=== PATIENT | female | born 1975 | race Caucasian/White ===

== ENCOUNTER → 2018-06-04 | Outpatient (CLI) | payer MEDICAID ==
--- NOTE | 2018-06-04 11:50 | RADIOLOGY REPORT (SQ) ---
EXAM DESCRIPTION: MRI LUMBAR SPINE WITHOUT COMPLETED DATE/TIME: 06/04/2018 10:47 am REASON FOR STUDY: LOW BACK PAIN (M54.5) M54.5 LOW BACK PAIN COMPARISON: None. TECHNIQUE: Sagittal and Axial imaging includes T1, T2, STIR and gradient echo sequences. Coronal T2/ HASTE imaging. LIMITATIONS: Motion. FINDINGS: VISUALIZED UPPER ABDOMEN: Limited evaluation. No acute or suspicious findings suggested. SEGMENTATION: No transitional anatomy. The lowest well-developed disc space is labeled L5-S1. ALIGNMENT: Anatomic. VERTEBRAE: Intact. BONE MARROW: Normal. No marrow replacement or reactive changes. DISC SIGNAL: Desiccation L5-S1. POSTERIOR ELEMENTS: Generally intact. No pars defect evident. HARDWARE: None in the spine. CORD AND CONUS: Normal in size and signal intensity. Conus at the appropriate level. SOFT TISSUES: No aortic aneurysm seen. No bulky retroperitoneal adenopathy or mass. No paraspinal mas s or fluid. L1-L2: No significant spinal stenosis or exit foraminal stenosis. L2-L3: No significant spinal stenosis or exit foraminal stenosis. L3-L4: No significant spinal stenosis or exit foraminal stenosis. L4-L5: Facet arthropathy. No significant stenosis. L5-S1: Central disc herniation contacting the transiting nerve roots in the canal. Facet arthropathy . Mild neural foraminal narrowing bilaterally. LOWER THORACIC: Incompletely imaged. No stenosis seen. SACRUM: Visualized upper sacrum intact. OTHER: No other significant findings. IMPRESSION: Facet arthropathy. Central disc herniation L5-S1. TECHNICAL DOCUMENTATION: JOB ID: [id number] [employer]- All Rights Reserved Reading location - IP/workstation name: [email or web address]
--- NOTE | 2018-06-04 12:16 | RADIOLOGY REPORT (SQ) ---
EXAM DESCRIPTION: KNEE LEFT 3 VIEWS COMPLETED DATE/TIME: 06/04/2018 10:33 am REASON FOR STUDY: BILATERAL KNEE PAIN (M25.561,M25.562) M54.5 LOW BACK PAIN COMPARISON: None. NUMBER OF VIEWS: Three views. TECHNIQUE: AP, lateral, and tunnel radiographic images acquired of the left knee. LIMITATIONS: None. FINDINGS: MINERALIZATION: Normal. BONES: No acute fracture or dislocation. No worrisome bone lesions. JOINT: No effusion. SOFT TISSUES: No soft tissue swelling. No radio-opaque foreign body. OTHER: No other significant finding. IMPRESSION: NEGATIVE STUDY OF THE LEFT KNEE. NO RADIOGRAPHIC EVIDENCE OF ACUTE INJURY. TECHNICAL DOCUMENTATION: JOB ID: [id number] [employer]- All Rights Reserved Reading location - IP/workstation name: [email or web address]
--- NOTE | 2018-06-04 12:18 | RADIOLOGY REPORT (SQ) ---
EXAM DESCRIPTION: KNEE RIGHT 3 VIEWS COMPLETED DATE/TIME: 06/04/2018 10:33 am REASON FOR STUDY: BILATERAL KNEE PAIN (M25.561,M25.562) M54.5 LOW BACK PAIN COMPARISON: None. NUMBER OF VIEWS: Three views. TECHNIQUE: AP, lateral, and tunnel radiographic images acquired of the right knee. LIMITATIONS: None. FINDINGS: MINERALIZATION: Normal. BONES: No acute fracture or dislocation. No worrisome bone lesions. Benign bony spurring along the patellar tendon attachment to the inferior patellar margin JOINT: Tiny suprapatellar knee joint effusion. SOFT TISSUES: No soft tissue swelling. No radio-opaque foreign body. OTHER: No other significant finding. IMPRESSION: Tiny suprapatellar knee joint effusion. Otherwise unremarkable study. TECHNICAL DOCUMENTATION: JOB ID: [id number] [employer] All Rights Reserved Reading location - IP/workstation name: [email or web address]
== END ==
LOC: RAD 09:19
PROVIDERS: ATTEND Pain Medicine Interventional Pain Medicine
DX: M51.27 Other intervertebral disc displacement, lumbosacral region (principal); M25.561 Pain in right knee; M25.562 Pain in left knee; M25.461 Effusion, right knee
CPT/HCPCS: 72148

== ENCOUNTER 2018-06-05 09:59 | Emergency (ER) | payer MEDICAID ==
[2018-06-05] MEDS ORDERED: METOCLOPRAMIDE HCL ORAL SOLN 10 MG/10 ML UDCUP PO ONE (10:38)
[2018-06-05] MEDS ORDERED: MAG HYDROX/AL HYDROX/SIMETH SUSP 30 ML UDCUP PO ONE (10:38)
[2018-06-05] MEDS ORDERED: LIDOCAINE 2% VISCOUS SOLN 20 ML UDCUP PO ONE (10:38)
[2018-06-05] MEDS ORDERED: FAMOTIDINE 20 MG TABLET PO ONE (10:38)
--- NOTE | 2018-06-05 10:40 | ER Document Report ---
ED Medical Screen (RME) - General Chief Complaint: Abdominal Pain Stated Complaint: ABDOMINAL PAIN Time Seen by Provider: 06/05/18 10:31 Primary Care Provider: GELA COOK MD [Primary Care Provider] - Follow up as needed Mode of Arrival: Ambulatory Information source: Patient Notes: 43-year-old female presents emergency department complaints of epigastric abdomi nal pain that started at 3 AM. She is having associated nausea and vomiting. She describes the pain as a sharp and stabbing sensation located in the epigastric area with radiation to the left upper quadrant. She denies any alleviating or exacerbating factors. She states that she has tried [place] without any relief of symptoms. She denies any diarrhea, constipation, dysuria, hematuria, vaginal bleeding, vaginal discharge, fever, chills, chest pain, shortness of breath. Patient denies a history of hypertension, diabetes, coronary artery disease. Patient states that she does have a history of hyperlipidemia, lupus and smokes. I have greeted and performed a rapid initial assessment of this patient. A comprehensive ED assessment and evaluation of the patient, analysis of test res ults and completion of the medical decision making process will be conducted by additional ED providers. PHYSICAL EXAMINATION: GENERAL: Well-appearing, well-nourished and in no acute distress. HEAD: Atraumatic, normocephalic. EYES: Pupils equal round extraocular movements intact, conjunctiva are normal. ENT: Nares patent NECK: Normal range of motion LUNGS: No respiratory distress Musculoskeletal: Normal range of motion NEUROLOGICAL: Normal speech, normal gait. PSYCH: Normal mood, normal affect. SKIN: Warm, Dry, normal turgor, no rashes or lesions noted. TRAVEL OUTSIDE OF THE [place] IN LAST 30 DAYS: No - Related Data Allergies/Adverse Reactions: erythromycin base Allergy (Verified 06/05/18 10:35) Past Medical History - Social History Chew tobacco use (# tins/day): No Frequency of alcohol use: Occasional Drug Abuse: None - Past Medical History Cardiac Medical History: Reports: Hx Hypercholesterolemia Pulmonary Medical History: Reports: Hx COPD Renal/ Medical History: Denies: Hx Peritoneal Dialysis GI Medical History: Reports: Hx Gastroesophageal Reflux Disease Musculoskeltal Medical History: Reports Hx Arthritis Psychiatric Medical History: Reports: Hx Depression - anxiety Past Surgical History: Reports: Hx Abdominal Surgery - laproscopic surgery, Hx Tonsillectomy Physical Exam - Vital signs Vitals: Temp Pulse Resp BP Pulse Ox 98.8 F 89 20 126/77 H 100 06/05/18 10:08 06/05/18 10:08 06/05/18 10:08 06/05/18 10:08 06/05/18 10:08 Course - Vital Signs Vital signs: Temp Pulse Resp BP Pulse Ox 98.8 F 89 20 126/77 H 100 06/05/18 10:08 06/05/18 10:08 06/05/18 10:08 06/05/18 10:08 06/05/18 10:08 Doctor's Discharge - Discharge Referrals: GELA COOK MD [Primary Care Provider] - Follow up as needed
--- NOTE | 2018-06-05 11:22 | RADIOLOGY REPORT (SQ) ---
EXAM DESCRIPTION: CHEST SINGLE VIEW COMPLETED DATE/TIME: 06/05/2018 10:59 am REASON FOR STUDY: epigastric abdominal pain COMPARISON: None. NUMBER OF VIEWS: One view. TECHNIQUE: Single frontal radiographic view of the chest acquired. LIMITATIONS: None. FINDINGS: LUNGS AND PLEURA: No opacities, masses or pneumothorax. No pleural effusion. MEDIASTINUM AND HILAR STRUCTURES: No masses. Contour normal. HEART AND VASCULAR STRUCTURES: Heart normal in size. Normal vasculature. BONES: No acute findings. HARDWARE: None in the chest. OTHER: No other significant finding. IMPRESSION: NO SIGNIFICANT RADIOGRAPHIC FINDING IN THE CHEST. TECHNICAL DOCUMENTATION: JOB ID: [id number] [employer]- All Rights Reserved Reading location - IP/workstation name: [email or web address]
[2018-06-05 11:51] LABS: ALANINE AMINOTRANSFERASE 38 U/L (9-52); ALBUMIN 4.7 g/dL (3.5-5.0); ALKALINE PHOSPHATASE 85 U/L (38-126); ANION GAP 11 (5-19); ASPARTATE AMINO TRANSFERASE 27 U/L (14-36); BILIRUBIN,DIRECT 0.2 mg/dL (0.0-0.4); BILIRUBIN,TOTAL 0.3 mg/dL (0.2-1.3); BLOOD UREA NITROGEN 9 mg/dL (7-20); CALCIUM 9.7 mg/dL (8.4-10.2); CARBON DIOXIDE 27 mmol/L (22-30); CHLORIDE 106 mmol/L (98-107); GLUCOSE 74 mg/dL (75-110); POTASSIUM 3.8 mmol/L (3.6-5.0); SODIUM 144.3 mmol/L (137-145); TOTAL PROTEIN 7.8 g/dL (6.3-8.2)
[2018-06-05 11:56] LABS: APPEARANCE,URINE CLEAR; BILIRUBIN,URINE NEGATIVE (NEGATIVE); COLOR,URINE STRAW; GLUCOSE, URINE NEGATIVE (NEGATIVE); KETONES,URINE NEGATIVE (NEGATIVE); LEUKOCYTE ESTERASE,URINE NEGATIVE (NEGATIVE); NITRITE,URINE NEGATIVE (NEGATIVE); PROTEIN,URINE NEGATIVE (NEGATIVE); URINE SPECIFIC GRAVITY 1.003; UROBILINOGEN,URINE NEGATIVE mg/dL (<2.0)
[2018-06-05 12:04] LABS: ABSOLUTE BASOPHILS # (AUTO) 0.1 10^3/uL (0.0-0.2); ABSOLUTE EOSINOPHILS # (AUTO) 0.1 10^3/uL (0.0-0.6); ABSOLUTE LYMPHOCYTES (AUTO) 3.2 10^3/uL (0.5-4.7); ABSOLUTE MONOCYTES (AUTO) 0.6 10^3/uL (0.1-1.4); ABSOLUTE NEUT (AUTO) 8.8 10^3/uL (1.7-8.2); BASOPHILS % (AUTO) 0.5 % (0-2); EOSINOPHILS % (AUTO) 1.1 % (0-6); HEMATOCRIT 42.3 % (36.0-47.0); HEMOGLOBIN 14.4 g/dL (12.0-15.5); MEAN CORPUSCULAR HEMOGLOBIN 30.5 pg (27.0-33.4); MEAN CORPUSCULAR VOLUME 90 fl (80-97); MONOCYTES % (AUTO) 4.8 % (3-13); PLATELET COUNT 330 10^3/uL (150-450); RED CELL DISTRIBUTION WIDTH 15.3 % (11.5-14.0); SEGMENTED NEUTROPHILS % (AUTO) 68.6 % (42-78); TOTAL CELLS COUNTED % (AUTO) 100 %; WHITE BLOOD COUNT 12.8 10^3/uL (4.0-10.5)
--- NOTE | 2018-06-05 13:16 | ER Document Report ---
ED General - General Chief Complaint: Abdominal Pain Stated Complaint: ABDOMINAL PAIN Time Seen by Provider: 06/05/18 10:31 Primary Care Provider: GELA COOK MD [ACTIVE STAFF] - Follow up as needed Mode of Arrival: Ambulatory Notes: RME note: 43-year-old female presents emergency department complaints of epigastric abdominal pain that started at 3 AM. She is having associated nausea and vomiting. She describes the pain as a sharp and stabbing sensation located in the epigastric area with radiation to the left upper quadrant. She denies any alleviating or exacerbating factors. She states that she has tried Apple-[place] without any relief of symptoms. She denies any diarrhea, constipation, dysuria, hematuria, vaginal bleeding, vaginal discharge, fever, chills, chest pain, chela rtness of breath. Patient denies a history of hypertension, diabetes, coronary artery disease. Patient states that she does have a history of hyperlipidemia, lupus and smokes. MY HPI: Same as above. Patient denies any blood in her vomiting. After treatments in the emergency department by [facility] provider patient no longer has any epigastric abdominal pain and is sleeping upon me arriving to the room. Past medical history: GERD, lupus, degenerative disc disease Medications: Wellbutrin, Valium, hydroxychloroquine Allergies: Erythromycin Last menstrual period 05/18/2018 TRAVEL OUTSIDE OF THE [place] IN LAST 30 DAYS: No - Related Data Allergies/Adverse Reactions: erythromycin base Allergy (Verified 06/05/18 10:35) Past Medical History - General Information source: Patient - Social History Smoking Status: Current Every Day Smoker Chew tobacco use (# tins/day): No Frequency of alcohol use: Occasional Drug Abuse: None Family History: Reviewed & Not Pertinent Patient has suicidal ideation: No Patient has homicidal ideation: No - Past Medical History Cardiac Medical History: Reports: Hx Hypercholesterolemia Pulmonary Medical History: Reports: Hx COPD Renal/ Medical History: Denies: Hx Peritoneal Dialysis GI Medical History: Reports: Hx Gastroesophageal Reflux Disease Musculoskeletal Medical History: Reports Hx Arthritis Psychiatric Medical History: Reports: Hx Depression - anxiety Past Surgical History: Reports: Hx Abdominal Surgery - laproscopic surgery, Hx Tonsillectomy Review of Systems - Review of Systems Constitutional: No symptoms reported EENT: No symptoms reported Cardiovascular: No symptoms reported Respiratory: No symptoms reported Gastrointestinal: See HPI Genitourinary: See HPI Female Genitourinary: See HPI Musculoskeletal: No symptoms reported Skin: No symptoms reported Hematologic/Lymphatic: No symptoms reported Neurological/Psychological: No symptoms reported Physical Exam - Vital signs Vitals: Temp Pulse Resp BP Pulse Ox 98.8 F 89 20 126/77 H 100 06/05/18 10:08 06/05/18 10:08 06/05/18 10:08 06/05/18 10:08 06/05/18 10:08 - Notes Notes: GENERAL: Alert, interacts well. No acute distress. HEAD: Normocephalic, atraumatic. EYES: Pupils equal, round, and reactive to light. Extraocular movements intact. ENT: Oral mucosa moist, tongue midline. NECK: Full range of motion. Supple. Trachea midline. LUNGS: Clear to auscultation bilaterally, no wheezes, rales, or rhonchi. No respiratory distress. HEART: Regular rate and rhythm. No murmur ABDOMEN: Soft, non-tender. Non-distended. Bowel sounds present in all 4 quadrants. No McBurney's point tenderness noted, no Nair sign. Very minor epigastric abdominal pain upon deep palpation. EXTREMITIES: Moves all 4 extremities spontaneously. No edema, normal radial and dorsalis pedis pulses bilaterally. No cyanosis. BACK: no cervical, thoracic, lumbar midline tenderness. No saddle anesthesia, normal distal neurovascular exam. NEUROLOGICAL: Alert and oriented x3. Normal speech. cranial nerves II through XII grossly intact. PSYCH: Normal affect, normal mood. SKIN: Warm, dry, normal turgor. No rashes or lesions noted. Course - Re-evaluation Re-evalutation: 06/05/18 13:15 Initially upon my evaluation patient is sleeping easily arousable. Patient states she no longer has any abdominal pain and is no longer nauseous. She has been able to drink fluids since arrival to the emergency room. Upon palpation of patient's abdomen she does have minor epigastric abdominal pain. Patient states it feels a lot better than when she arrived. Discussed following up with primary care provider and inevitably gastroenterology. 06/05/18 13:16 Patient's labs show a leukocytosis of 12.8 likely due to her vomiting. No signs of anemia, electrolyte abnormalities, elevation in patient's liver function or lipase. No signs of urinary tract infection. Chest x-ray shows no signs of p neumonia, and are not worrisome for free air. Discussed close follow-up with patient, patient stable for discharge. - Vital Signs Vital signs: Temp Pulse Resp BP Pulse Ox 98.8 F 89 20 126/77 H 100 06/05/18 10:08 06/05/18 10:08 06/05/18 10:08 06/05/18 10:08 06/05/18 10:08 - Laboratory Result Diagrams: 06/05/18 11:05 06/05/18 11:05 Laboratory results interpreted by me: 06/05/18 06/05/18 11:05 11:05 WBC 12.8 H RDW 15.3 H Absolute Neutrophils 8.8 H Glucose 74 L Discharge - Discharge Clinical Impression: Epigastric abdominal pain Vomiting Qualifiers: Vomiting type: unspecified Vomiting Intractability: non-intractable Nausea presence: with nausea Qualified Code(s): R11.2 - Nausea with vomiting, unspecified Condition: Stable Disposition: HOME, SELF-CARE Instructions: Abdominal Pain ([facility]), Vomiting ([facility]) Additional Instructions: As we discussed you have been seen and treated in the emergency department for your epigastric abdominal pain and vomiting. Please take medications as prescribed. Please follow-up with your primary care provider in the next 24-48 hours. Please also return to the emergency room should you have any other concerning symptoms. Prescriptions: Famotidine [Pepcid 40 mg Tablet] 40 mg PO BID #60 tablet Ondansetron [Zofran Odt 4 mg Tablet] 1 - 2 tab PO Q4H PRN #15 tab.rapdis PRN Reason: For Nausea/Vomiting Sucralfate [Carafate 1 gm Tablet] 1 gm PO QID #20 tablet Referrals: GELA COOK MD [ACTIVE STAFF] - Follow up as needed
[2018-06-05 13:36] VITALS: BP 123/69
--- NOTE | 2018-06-05 20:08 | EKG REPORT ---
SEVERITY:- NORMAL ECG - SINUS RHYTHM : Confirmed by: Tony Paredes 05-Jun-2018 20:07:14
== END 2018-06-05 13:36 | disposition home or self-care (01) ==
LOC: ER 09:59
DX: R10.13 Epigastric pain (principal); R11.2 Nausea with vomiting, unspecified; F17.200 Nicotine dependence, unspecified, uncomplicated; K21.9 Gastro-esophageal reflux disease without esophagitis; E78.00 Pure hypercholesterolemia, unspecified; Z88.3 Allergy status to other anti-infective agents
CPT/HCPCS: 93005; 99284; 36415; 83690; 85025; 81025; 80053; 81001; 71045; 93010; J3490 ×4

== ENCOUNTER 2018-06-30 16:46 | Emergency (ER) | payer MEDICAID ==
[2018-06-30] MEDS ORDERED: FENTANYL CITRATE INJ/PF 100 MCG/2 ML AMPUL IM ONE (18:27)
[2018-06-30] MEDS ORDERED: KETOROLAC TROMETHAMINE 60 MG/2 ML SDV IM ONE (18:27)
--- NOTE | 2018-06-30 18:28 | ER Document Report ---
ED Hand/Wrist Injury - General Chief Complaint: Wrist Pain Stated Complaint: WRIST PAIN Time Seen by Provider: 06/30/18 18:16 Notes: 43-year-old female patient emergency department chief complaint of right wrist pain. 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 Everything has been fine but after procedure several hours later began developed severe pain in the right wrist. Pain with range of motion. Patient placed a George wrap on the right wrist and that did seem to help. Continues to have pain. Pain is not getting worse but getting slightly better. Did take some Naprosyn before she came. Sensation is intact in the fingers. Able to move all digits. TRAVEL OUTSIDE OF THE [place] IN LAST 30 DAYS: No - HPI Injury to: Wrist Onset: Just prior to arrival Where: Home Timing: Constant Quality of pain: Achy, Throbbing - Related Data Allergies/Adverse Reactions: erythromycin base Allergy (Verified 06/30/18 16:47) Past Medical History - General Information source: Patient - Social History Smoking Status: Current Every Day Smoker Frequency of alcohol use: None Drug Abuse: None Lives with: Family Family History: Reviewed & Not Pertinent Patient has suicidal ideation: No Patient has homicidal ideation: No - Past Medical History Cardiac Medical History: Reports: Hx Hypercholesterolemia Pulmonary Medical History: Reports: Hx COPD Renal/ Medical History: Denies: Hx Peritoneal Dialysis GI Medical History: Reports: Hx Gastroesophageal Reflux Disease Musculoskeletal Medical History: Reports Hx Arthritis Psychiatric Medical History: Reports: Hx Depression - anxiety Past Surgical History: Reports: Hx Abdominal Surgery - laproscopic surgery, Hx Tonsillectomy Review of Systems - Review of Systems Constitutional: denies: Fever, Malaise, Weakness EENT: denies: Blurred vision, Difficulty swallowing, Mouth swelling Cardiovascular: denies: Chest pain, Palpitations, Heart racing Respiratory: denies: Cough, Hurts to breathe, Short of breath, Wheezing Musculoskeletal: See HPI, Other - Complaining of pain in the right wrist. Pain with range of motion flexion and extension. Physical Exam - Vital signs Vitals: Temp Pulse Resp BP Pulse Ox 98.7 F 126 H 20 139/83 H 99 06/30/18 16:51 06/30/18 16:51 06/30/18 16:51 06/30/18 16:51 06/30/18 16:51 Interpretation: Normal - General General appearance: Appears well In distress: None - Respiratory Respiratory status: No respiratory distress Chest status: Nontender Breath sounds: Normal Chest palpation: Normal - Cardiovascular Rhythm: Regular Heart sounds: Normal auscultation Murmur: No - Extremities General upper extremity: Other - Both radial and ulnar artery pulses are intact. Full sensation intact with hyper sensation. Pain worse with range of motion of the right wrist and fingers. There does not appear to be any tense compartments. There is a small injection site noted in the right dorsal wrist area. There is no signs of streaking cellulitis or lymphangitic streaking. It is non-warm and nonerythematous - Skin Skin Temperature: Warm Skin Moisture: Dry Skin Color: Normal Course - Re-evaluation Re-evalutation: 06/30/18 19:33 At this time I think more likely patient is having just a little bit of injection site pain. I have explained to her that I am not concerned about an acute infection. I do not think this represents a acute compartment syndrome as her compartments are soft. Could be some local inflammation. I am going to give her some a medication here in the ER. Currently the pain is decreasing not increasing. More likely patient will be stable for discharge. Has narcotic medication as her regular pain meds at home. 06/30/18 20:03 Patient feeling much better at this time. Pain is much better. Will DC at this time with some Toradol. - Vital Signs Vital signs: Temp Pulse Resp BP Pulse Ox 98.8 F 108 H 20 133/80 H 99 06/30/18 19:58 06/30/18 19:58 06/30/18 16:51 06/30/18 19:58 06/30/18 19:58 Discharge - Discharge Clinical Impression: Arthritis of right wrist Pain at injection site Qualifiers: Encounter type: initial encounter Qualified Code(s): T80.89XA - Other complications following infusion, transfusion and therapeutic injection, initial encounter; R52 - Pain, unspecified Condition: Good Disposition: HOME, SELF-CARE Instructions: Pain Medication Injection ([facility]), Arthralgia ([facility]), Arthritis ([facility] ) Additional Instructions: If you develop any redness or swelling which is getting worse, fever, any other concerns please return or follow-up with your regular doctor. Take medications as prescribed. Prescriptions: Ketorolac Tromethamine [Toradol 10 mg Tablet] 10 mg PO Q8HP PRN 4 Days #12 tablet PRN Reason: Forms: Return to Work
[2018-06-30 20:01] VITALS: BP 133/80
== END 2018-06-30 20:18 | disposition home or self-care (01) ==
LOC: ER 16:46
DX: T80.89XA Other complications following infusion, transfusion and therapeutic injection, initial encounter (principal); M25.531 Pain in right wrist; Y84.8 Other medical procedures as the cause of abnormal reaction of the patient, or of later complication, without mention of misadventure at the time of the procedure; Y92.009 Unspecified place in unspecified non-institutional (private) residence as the place of occurrence of the external cause; M19.031 Primary osteoarthritis, right wrist; Z88.1 Allergy status to other antibiotic agents; F17.200 Nicotine dependence, unspecified, uncomplicated; J44.9 Chronic obstructive pulmonary disease, unspecified
CPT/HCPCS: 99283; 96372; J1885; J3010

== ENCOUNTER 2018-12-11 03:11 | Emergency (ER) | payer MEDICAID ==
[2018-12-11 04:23] LABS: ABSOLUTE LYMPHOCYTES (AUTO) 1.7 10^3/uL (0.5-4.7); ABSOLUTE MONOCYTES (AUTO) 0.3 10^3/uL (0.1-1.4); ABSOLUTE NEUT (AUTO) 11.3 10^3/uL (1.7-8.2); BASOPHILS % (AUTO) 0.3 % (0-2); HEMATOCRIT 41.8 % (36.0-47.0); HEMOGLOBIN 13.5 g/dL (12.0-15.5); LYMPHOCYTES % (AUTO) 12.4 % (13-45); MEAN CORPUSCULAR HEMOGLOBIN 29.7 pg (27.0-33.4); MEAN CORPUSCULAR HGB CONC 32.3 g/dL (32.0-36.0); MEAN CORPUSCULAR VOLUME 92 fl (80-97); MONOCYTES % (AUTO) 2.6 % (3-13); PLATELET COUNT 330 10^3/uL (150-450); RED BLOOD COUNT 4.55 10^6/uL (3.72-5.28); SEGMENTED NEUTROPHILS % (AUTO) 84.7 % (42-78); TOTAL CELLS COUNTED % (AUTO) 100 %; WHITE BLOOD COUNT 13.3 10^3/uL (4.0-10.5)
[2018-12-11 04:29] LABS: APPEARANCE,URINE SLIGHTLY-CLOUDY; BILIRUBIN,URINE NEGATIVE (NEGATIVE); COLOR,URINE YELLOW; GLUCOSE, URINE NEGATIVE (NEGATIVE); KETONES,URINE NEGATIVE (NEGATIVE); LEUKOCYTE ESTERASE,URINE NEGATIVE (NEGATIVE); NITRITE,URINE NEGATIVE (NEGATIVE); PROTEIN,URINE 30 mg/dL (NEGATIVE); URINE SPECIFIC GRAVITY 1.025
[2018-12-11 04:43] LABS: ALBUMIN 4.1 g/dL (3.5-5.0); ALKALINE PHOSPHATASE 77 U/L (38-126); ANION GAP 11 (5-19); ASPARTATE AMINO TRANSFERASE 29 U/L (14-36); BILIRUBIN,DIRECT 0.5 mg/dL (0.0-0.4); BILIRUBIN,TOTAL 0.5 mg/dL (0.2-1.3); BLOOD UREA NITROGEN 14 mg/dL (7-20); CALCIUM 9.6 mg/dL (8.4-10.2); CARBON DIOXIDE 22 mmol/L (22-30); CHLORIDE 106 mmol/L (98-107); GLUCOSE 145 mg/dL (75-110); POTASSIUM 4.5 mmol/L (3.6-5.0); TOTAL PROTEIN 7.3 g/dL (6.3-8.2)
[2018-12-11] MEDS ORDERED: DICYCLOMINE HCL 20 MG TABLET PO ONE (05:20)
[2018-12-11] MEDS ORDERED: OXYCODONE-ACETAMINOPHEN 5-325 MG TABLET PO ONE (05:20)
[2018-12-11] MEDS ORDERED: ONDANSETRON 4 MG TAB.RAPDIS PO ONE (05:20)
--- NOTE | 2018-12-11 05:22 | ER Document Report ---
ED Medical Screen (RME) - General Chief Complaint: Epigastric Pain Stated Complaint: FLANK PAIN Time Seen by Provider: 12/11/18 05:17 Primary Care Provider: VALENTE BARON FNP-C [Primary Care Provider] - Follow up as needed Mode of Arrival: Ambulatory Information source: Patient Notes: This 43-year-old female presents to the emergency department with epigastric dong n that wraps around to the right side of her back. Reports nausea and vomiting. Reports pain woke her up from midnight. Epigastric area tender to palpate. I have greeted and performed a rapid initial assessment of this patient. A comprehensive ED assessment and evaluation of the patient, analysis of test results and completion of the medical decision making process will be conducted by additional ED providers. Dictation of this chart was performed using voice recognition software; therefore, there may be some unintended grammatical errors. TRAVEL OUTSIDE OF THE [place] IN LAST 30 DAYS: No - Related Data Allergies/Adverse Reactions: erythromycin base Allergy (Verified 12/11/18 03:25) Past Medical History - Past Medical History Cardiac Medical History: Reports: Hx Hypercholesterolemia Pulmonary Medical History: Reports: Hx COPD Renal/ Medical History: Denies: Hx Peritoneal Dialysis GI Medical History: Reports: Hx Gastroesophageal Reflux Disease Musculoskeltal Medical History: Reports Hx Arthritis Psychiatric Medical History: Reports: Hx Depression - anxiety Past Surgical History: Reports: Hx Abdominal Surgery - laproscopic surgery, Hx Tonsillectomy Physical Exam - Vital signs Vitals: Temp Pulse Resp BP Pulse Ox 97.5 F 77 18 125/83 99 12/11/18 03:29 12/11/18 03:29 12/11/18 03:29 12/11/18 03:29 12/11/18 03:29 Course - Vital Signs Vital signs: Temp Pulse Resp BP Pulse Ox 97.5 F 77 18 125/83 99 12/11/18 03:29 12/11/18 03:29 12/11/18 03:29 12/11/18 03:29 12/11/18 03:29 - Laboratory Result Diagrams: 12/11/18 03:40 12/11/18 03:40 Laboratory results interpreted by me: 12/11/18 12/11/18 12/11/18 03:40 03:40 03:40 WBC 13.3 H RDW 15.0 H Seg Neutrophils % 84.7 H Lymphocytes % 12.4 L Monocytes % 2.6 L Absolute Neutrophils 11.3 H Glucose 145 H Direct Bilirubin 0.5 H Urine Protein 30 H Urine Urobilinogen 2.0 H Urine Ascorbic Acid 40 H Doctor's Discharge - Discharge Referrals: VALENTE BARON, [facility] [Primary Care Provider] - Follow up as needed
[2018-12-11] MEDS ORDERED: METOCLOPRAMIDE HCL INJ/PF 10 MG/2 ML SDV IV ONE (06:00)
--- NOTE | 2018-12-11 07:32 | RADIOLOGY REPORT (SQ) ---
EXAM DESCRIPTION: US ABDOMEN LIMITED COMPLETED DATE/TME: 12/11/2018 05:20 CLINICAL HISTORY: 43 years Female, epigastric pain, RUQ Comparison: None. LIMITATIONS: None. FINDINGS: Cholelithiasis, negative sonographic Nair's test, liver, a 0.4-cm diameter common bile duct, no intrahepatic ductal dilation, hepatopetal patent flow of the portal vein, 11-cm right kidney, pancreas, visualized vasculature/abdominal aorta, and no significant ascites appear otherwise unremarkable. IMPRESSION: No acute findings. Cholelithiasis.
[2018-12-11 09:57] VITALS: BP 103/50
--- NOTE | 2018-12-12 10:27 | ER Document Report ---
Entered by AIDA CRYSTAL SCRIBE 12/11/18 0930 Acting as scribe for:MOMO CRUZ MD ED General - General Chief Complaint: Epigastric Pain Stated Complaint: FLANK PAIN Time Seen by Provider: 12/11/18 05:17 Primary Care Provider: VALENTE BARON FNP-C [Primary Care Provider] - Follow up as needed Mode of Arrival: Ambulatory Notes: Patient is a 43-year-old female with history of cholelithiasis presenting to the emergency department complaining of flank pain. Patient states that she is also experiencing abdominal pain, and that it is specifically in the epigastric area. Patient reports she is also experiencing right sided back pain. Patient states that the only medication she is taking is prednisone, she was prescribed that yesterday from Dr. Patiño. TRAVEL OUTSIDE OF THE [place] IN LAST 30 DAYS: No - Related Data Allergies/Adverse Reactions: erythromycin base Allergy (Verified 12/11/18 03:25) Past Medical History - General Information source: Patient - Social History Smoking Status: Current Every Day Smoker Cigarette use (# per day): Yes Chew tobacco use (# tins/day): No Smoking Education Provided: No Frequency of alcohol use: None Drug Abuse: None Family History: Reviewed & Not Pertinent Patient has suicidal ideation: No Patient has homicidal ideation: No - Past Medical History Cardiac Medical History: Reports: Hx Hypercholesterolemia Pulmonary Medical History: Reports: Hx COPD GI Medical History: Reports: Hx Gastroesophageal Reflux Disease Musculoskeletal Medical History: Reports Hx Arthritis Psychiatric Medical History: Reports: Hx Depression - anxiety Past Surgical History: Reports: Hx Abdominal Surgery - laproscopic surgery, Hx Tonsillectomy Review of Systems - Review of Systems Constitutional: No symptoms reported EENT: No symptoms reported Cardiovascular: No symptoms reported Respiratory: No symptoms reported Gastrointestinal: See HPI, Abdominal pain Genitourinary: See HPI, Flank pain Female Genitourinary: No symptoms reported Musculoskeletal: See HPI, Back pain - right Skin: No symptoms reported Hematologic/Lymphatic: No symptoms reported Neurological/Psychological: No symptoms reported -: Yes All other systems reviewed and negative Physical Exam - Vital signs Vitals: Temp Pulse Resp BP Pulse Ox 97.5 F 77 18 125/83 99 12/11/18 03:29 12/11/18 03:29 12/11/18 03:29 12/11/18 03:29 12/11/18 03:29 - Notes Notes: Physical Exam: General: Alert, appears well. HEENT: Normocephalic. Atraumatic. PERRL. Extraocular movements intact. Oropharynx clear. Neck: Supple. Non-tender. Respiratory: No respiratory distress. Clear and equal breath sounds bilaterally. Cardiovascular: Regular rate and rhythm. Abdominal: Normal Inspection. Non-tender. No distension. Normal Bowel Sounds. Back: Non-tender. No deformity or step off. Extremities: Moves all four extremities. Upper extremities: Normal inspection. Normal ROM. Lower extremities: Normal inspection. No edema. Normal ROM. Neurological: Normal cognition. AAOx4. Normal speech. Psychological: Normal affect. Normal Mood. Skin: Warm. Dry. Normal color. Course - Re-evaluation Re-evalutation: 12/11/18 09:45 Labs within normal limits are nonsignificant. Patient was found shows evidence of cholelithiasis with no evidence of cholecystitis. She has had these symptoms in the past. No recent fevers or chills. Patient is currently on Nexium. She did eat a fatty dinner last night. Discussed station of fatty foods gallbladder cholecystitis return precautions provided including any fevers chills worsening of symptoms prolonged nausea or vomiting she should return to the emergency department. Otherwise, she should follow-up with her primary care physician for surgery referral if symptoms are intermittent in nature for consideration of elective cholecystectomy - Vital Signs Vital signs: Temp Pulse Resp BP Pulse Ox 98.7 F 79 16 103/50 L 99 12/11/18 09:54 12/11/18 09:54 12/11/18 09:54 12/11/18 09:54 12/11/18 09:54 - Laboratory Result Diagrams: 12/11/18 03:40 12/11/18 03:40 Laboratory results interpreted by me: 12/11/18 12/11/18 12/11/18 03:40 03:40 03:40 WBC 13.3 H RDW 15.0 H Seg Neutrophils % 84.7 H Lymphocytes % 12.4 L Monocytes % 2.6 L Absolute Neutrophils 11.3 H Glucose 145 H Direct Bilirubin 0.5 H Urine Protein 30 H Urine Urobilinogen 2.0 H Urine Ascorbic Acid 40 H Discharge - Discharge Clinical Impression: Cholelithiasis Qualifiers: Cholelithiasis location: gallbladder Cholecystitis presence: without cholecystitis Biliary obstruction: without biliary obstruction Qualified Code(s): K80.20 - Calculus of gallbladder without cholecystitis without obstruction Condition: Good Disposition: HOME, SELF-CARE Instructions: Gallbladder Disease ([facility]) Prescriptions: Ondansetron [Zofran Odt 4 mg Tablet] 1 tab PO Q4H PRN #15 tab.rapdis PRN Reason: For Nausea/Vomiting Oxycodone HCl/Acetaminophen [Percocet 5-325 mg Tablet] 1 tab PO ASDIR PRN #10 tablet PRN Reason: Referrals: VALENTE BARON, HEDIS SPECIALIST-C [Primary Care Provider] - Follow up as needed I personally performed the services described in the documentation, reviewed and edited the documentation which was dictated to the scribe in my presence, and it accurately records my words and actions.
== END 2018-12-11 09:59 | disposition home or self-care (01) ==
LOC: ER 03:11
DX: K80.20 Calculus of gallbladder without cholecystitis without obstruction (principal); K21.9 Gastro-esophageal reflux disease without esophagitis; Z79.899 Other long term (current) drug therapy; R10.9 Unspecified abdominal pain; R10.13 Epigastric pain; M54.9 Dorsalgia, unspecified; F17.210 Nicotine dependence, cigarettes, uncomplicated; J44.9 Chronic obstructive pulmonary disease, unspecified; Z88.1 Allergy status to other antibiotic agents
CPT/HCPCS: 99284; 96374; 36415; 83690; 85025; 81025; 80053; 81001; 76705; J3490; S0119; J2765

== ENCOUNTER 2018-12-21 11:09 | Day surgery (SDC) | payer MEDICAID ==
[2018-12-20 09:30] LABS: HEMATOCRIT 39.6 % (36.0-47.0); HEMOGLOBIN 12.9 g/dL (12.0-15.5); MEAN CORPUSCULAR HEMOGLOBIN 29.9 pg (27.0-33.4); MEAN CORPUSCULAR HGB CONC 32.6 g/dL (32.0-36.0); MEAN CORPUSCULAR VOLUME 92 fl (80-97); PLATELET COUNT 267 10^3/uL (150-450); RED BLOOD COUNT 4.33 10^6/uL (3.72-5.28); RED CELL DISTRIBUTION WIDTH 15.3 % (11.5-14.0); WHITE BLOOD COUNT 16.1 10^3/uL (4.0-10.5)
[2018-12-20 10:01] LABS: ALBUMIN 4.1 g/dL (3.5-5.0); ALKALINE PHOSPHATASE 65 U/L (38-126); ANION GAP 9 (5-19); ASPARTATE AMINO TRANSFERASE 16 U/L (14-36); BILIRUBIN,DIRECT 0.3 mg/dL (0.0-0.4); BILIRUBIN,TOTAL 0.3 mg/dL (0.2-1.3); BLOOD UREA NITROGEN 11 mg/dL (7-20); CALCIUM 9.3 mg/dL (8.4-10.2); CARBON DIOXIDE 30 mmol/L (22-30); CHLORIDE 100 mmol/L (98-107); GLUCOSE 59 mg/dL (75-110); POTASSIUM 4.2 mmol/L (3.6-5.0); TOTAL PROTEIN 6.9 g/dL (6.3-8.2)
[~2018-12-21 11:09] MED LIST: ACETAMINOPHEN 325 MG TABLET PO SCH; BUPIVACAINE HCL 0.25 % INJ/PF (2.5 MG/1 ML) 30 ML VIAL ONE; CEFOXITIN SODIUM 2 GM in DEXTROSE 5%-WATER 100 ML IV SCH; GLUCAGON,HUMAN RECOMB 1 MG INJ ONE; IBUPROFEN 800 MG in NORMAL SALINE 250 ML IV SCH; LACTATED RINGERS 1000 ML IV PRN; LIDOCAINE 0.5% INJ-PF (5 MG/ML) 50 ML SDV SUBCUT PRN; NORMAL SALINE 1000 ML (RENAL PATIENTS) IV PRN
[2018-12-21] MEDS ORDERED: ACETAMINOPHEN 325 MG TABLET ONE (11:57)
[2018-12-21] MEDS: FAMOTIDINE INJ/PF 20 MG/2 ML SDV IV ONE ×2 (12:10→12:25)
[2018-12-21] MEDS ORDERED: IPRATROPIUM/ALBUTEROL 0.5-2.5 MG/3 ML AMPUL NEB ONE (12:19)
[2018-12-21] MEDS ORDERED: SCOPOLAMINE HYDROBROMIDE 1.5 MG PATCH.TD72 ONE (12:23)
[2018-12-21] MEDS ORDERED: RINGERS SOLUTION,LACTATED 1,000 ML IV ONE (12:45)
[2018-12-21] MEDS ORDERED: LIDOCAINE 2% INJ-PF (100 MG/5 ML) SYRINGE ONE (13:20)
[2018-12-21] MEDS ORDERED: PROPOFOL INJ 200 MG/20 ML VIAL IV ONE (13:21)
[2018-12-21] MEDS ORDERED: ONDANSETRON HCL INJ/PF 4 MG/2 ML SDV ONE (13:21)
[2018-12-21] MEDS ORDERED: DEXAMETHASONE SOD PHOSPHATE INJ 4 MG/1 ML VIAL ONE (13:21)
[2018-12-21] MEDS ORDERED: MIDAZOLAM 2 MG/2 ML INJ ONE (13:21)
[2018-12-21] MEDS ORDERED: FENTANYL CITRATE INJ/PF 250 MCG/5 ML AMPULE ONE (13:21)
--- NOTE | 2018-12-21 14:47 | Discharge Summary ---
Discharge Summary (SDC) - Discharge Final Diagnosis: Symptomatic cholelithiasis Date of Surgery: 12/21/18 Discharge Date: 12/21/18 Condition: Stable Treatment or Instructions: Discharge home. Diet as tolerated. Activity: No lifting greater than 10 pounds x 2 weeks. Follow-up with me in 7 to 10 days. [place] 10/325 mg p.o. every 6 hours as needed for pain. Okay to shower in 48 hours. No tub baths or swimming pools x2 weeks. Referrals: VALENTE BARON FNP-C [Primary Care Provider] - Discharge Diet: As Tolerated Respiratory Treatments at Home: Deep Breathing/Coughing, Incentive Spirometer Discharge Activity: No Lifting Over 10 Pounds, No Lifting/Push/Pulling Home Care Assistance: None Needed Report the Following to Your Physician Immediately: Shortness of Breath, Nausea, Vomiting, Yellow Skin, Fever over 101 Degrees, Unusual Bleeding, Redness, Swelling, Warmth
--- NOTE | 2018-12-21 14:57 | Operative Report ---
Nonrecallable Operative Report DATE OF SURGERY: 12/21/18 PREOPERATIVE DIAGNOSIS: Symptomatic cholelithiasis POSTOPERATIVE DIAGNOSIS: Same as above OPERATION: Laparoscopic cholecystectomy SURGEON: DWAYNE BURTON ANESTHESIA: GA TISSUE REMOVED OR ALTERED: Gallbladder COMPLICATIONS: None apparent ESTIMATED BLOOD LOSS: Minimal PROCEDURE: Drains/implants: None. Procedure in detail: After informed consent was obtained, the patient was brought to the operating room and laid in the supine position. The area of the abdomen was prepped and draped in a normal sterile fashion. An infraumbilical incision was created with a 15 blade scalpel. Dissection was carried through the subcutaneous tissue using sharp and blunt dissection. The cicatrix was identified, grasped with a Peggy clamp, and retracted upwards. The linea alba fascia was incised sharply, the abdomen was entered sharply. The balloon trocar was inserted, and pneumoperitoneum was achieved. A subxiphoid 5 mm port was then placed under direct laparoscopic visualization. 2 more 5 mm ports were placed in the right upper quadrant in similar fashion. Atraumatic graspers were placed through the 5 mm ports. The gallbladder was retracted cephalad and laterally. Dissection was begun in the triangle of Calot. The cystic duct and cystic artery were fully visualized and skeletonized, seeing the liver through the triangle. Once the critical view of safety was obtained, the cystic duct and cystic artery were clipped and cut with laparoscopic instruments. The gallbladder was then removed from the liver using Bovie electrocautery. The gallbladder was grasped with a large clamp and pulled out through the umbilicus. The camera was reinserted. The hilum was inspected, and found to be free of any leakage of blood or bile. Once this was confirmed, the 5 mm trochars were removed under direct laparoscopic visualization. The infraumbilical trocar was removed, and pneumoperitoneum was relieved. The infraumbilical fascia was closed using 0 Vicryl suture in [id number] fashion. The overlying skin was closed using 4-0 Vicryl Rapide suture in subcuticular fashion. A dressing was placed, and the procedure was concluded. All sponge, instrument, and needle counts were correct x2. Condition: Stable.
[2018-12-21] MEDS ORDERED: HYDROMORPHONE HCL INJ/PF 2 MG/ML AMPULE ONE (14:59)
[2018-12-21] MEDS ORDERED: ACETAMINOPHEN 1,000 MG/100 ML RTUPB IV ONE (15:00)
[2018-12-21] MEDS ORDERED: PROMETHAZINE HCL INJ 25 MG/1 ML VIAL IV PRN ×2 (15:18)
[2018-12-21] MEDS ORDERED: MEPERIDINE HCL/PF INJ 25 MG/1 ML DISP.SYRIN IV PRN (15:18)
[2018-12-21] MEDS ORDERED: ONDANSETRON HCL INJ/PF 4 MG/2 ML SDV IV PRN (15:18)
[2018-12-21] MEDS ORDERED: FENTANYL CITRATE INJ/PF 100 MCG/2 ML AMPUL IV PRN ×3 (15:18)
[2018-12-21] MEDS ORDERED: OXYCODONE-ACETAMINOPHEN 5-325 MG TABLET PO PRN ×2 (15:18)
[2018-12-21] MEDS ORDERED: DIPHENHYDRAMINE HCL 50 MG/ML VIAL IV PRN (15:18)
[2018-12-21] MEDS ORDERED: MORPHINE SULFATE 10 MG/ML INJ IV PRN (15:18)
[2018-12-21 17:24] VITALS: BP 114/68
== END 2018-12-21 16:50 | disposition home or self-care (01) ==
LOC: OROUT 11:09
PROVIDERS: ATTEND Surgery
DX: K80.20 Calculus of gallbladder without cholecystitis without obstruction (principal); M32.9 Systemic lupus erythematosus, unspecified; F17.210 Nicotine dependence, cigarettes, uncomplicated; I73.00 Raynaud's syndrome without gangrene; Z79.899 Other long term (current) drug therapy
CPT/HCPCS: 47562; 36415; 85027; 81025; 80076; 80048; 88304 ×2; 00790; J3490 ×2; J2250; J1100; J3010; J2001; J1170; J2405; S0020; J7060; J7050; J2704; S0028; J7620; J0131; J1741; J0694; 790; J1610